=== PATIENT | male | born 1955 | race Caucasian/White ===

== ENCOUNTER → 2017-06-06 | Outpatient (CLI) | payer OTHER ==
[~2017-06-06] VITALS: Ht 182.9 cm; Wt 93.0 kg
== END | disposition home or self-care (01) ==
LOC: Rad HDHVI 08:27
PROVIDERS: ATTEND Internal Medicine Cardiovascular Disease
DX: I10 Essential (primary) hypertension (principal); I25.10 Atherosclerotic heart disease of native coronary artery without angina pectoris
CPT/HCPCS: 78452; 93017; 96374; A9500

== ENCOUNTER 2017-07-06 06:00 | Inpatient (IN) | payer OTHER ==
[~2017-07-06] VITALS: Ht 182.9 cm; Wt 88.5 kg
[2017-07-06] MEDS ORDERED: SUCCINYLCHOLINE CHLORIDE 20 MG/ML 10ML VIAL IV ONE (06:48)
[2017-07-06] MEDS ORDERED: POVIDONE IODINE 10 % TOPICAL OINT 30GM TOP ONE (06:52)
[2017-07-06] MEDS ORDERED: MEPERIDINE HCL (50 MG/ML) 1 ML VIAL ONE (07:02)
[2017-07-06] MEDS ORDERED: ROCURONIUM 10MG/ML 10ML VIAL IV ONE (07:02)
[2017-07-06] MEDS ORDERED: fentaNYL CITRATE 100 MCG/2 ML VL ONE (07:02)
[2017-07-06] MEDS ORDERED: MIDAZOLAM HCL 1MG/1ML-2 ML VIAL ONE (07:02)
[2017-07-06] MEDS ORDERED: ONDANSETRON HCL 4 MG/2 ML VIAL ONE (07:02)
[2017-07-06] MEDS ORDERED: PROPOFOL 10 MG/ML 20 ML IV ONE (07:03)
[2017-07-06] MEDS ORDERED: ceFAZolin 1GM/100ML 50 ML IV ONE (07:14)
[2017-07-06] MEDS ORDERED: KETOROLAC TROMETH 60MG/2ML VIAL IM ONE (07:38)
[2017-07-06] MEDS ORDERED: GLYCOPYRROLATE 0.2 MG/ML 1ML VIAL ONE (07:38)
[2017-07-06] MEDS ORDERED: NEOSTIGMINE 1 MG/ML INJ (10mg/10ML VIAL) ONE (07:38)
[2017-07-06] MEDS ORDERED: METOCLOPRAMIDE HCL 5MG/ml INJ 2ml VIAL IV ONE (08:00)
[2017-07-06] MEDS ORDERED: MORPHINE SULFATE 4 MG/ML SYR/VIAL IV PRN ×3 (08:00→09:15)
[2017-07-06] MEDS ORDERED: NITROGLYCERIN 0.4 MG SL TAB SL PRN (09:15)
[2017-07-06] MEDS ORDERED: ONDANSETRON HCL 4 MG/2 ML VIAL IV PRN (09:15)
[2017-07-06] MEDS: D5W/SOD CHL 0.45%/KCL 20MEQ 1,000 ML IV SCH ×2 (10:00→20:58)
[2017-07-06] MEDS: MORPHINE SULFATE 4 MG/ML SYR/VIAL IV PRN ×5 (11:25→20:58)
[2017-07-06] MEDS: ISOSORBIDE MONONITRATE 60 MG TAB PO SCH (13:21)
[2017-07-06] MEDS: amLODIPine BESYLATE 5 MG TAB PO SCH (13:22)
[2017-07-06] MEDS: FAMOTIDINE 20 MG TAB PO SCH (13:23)
[2017-07-06] MEDS: FLUoxetine HCL 20 MG CAP PO SCH (13:23)
[2017-07-06] MEDS: ceFAZolin 1GM/100ML 50 ML IV SCH ×2 (13:35→21:05)
[2017-07-06] MEDS ORDERED: TAMS0.4C36 PO (17:15)
[2017-07-06] MEDS ORDERED: NITR0.4S29 SL (17:15)
[2017-07-06] MEDS ORDERED: ACET-1156 PO (17:15)
[2017-07-06] MEDS ORDERED: AMIT75TA2 PO (17:15)
[2017-07-06] MEDS ORDERED: LEVO25TA6 PO (17:15)
[2017-07-06] MEDS ORDERED: FLUO-125 PO (17:15)
[2017-07-06] MEDS ORDERED: AMLO5TAB2 PO (17:15)
[2017-07-06] MEDS ORDERED: ISO20T PO (17:15)
[2017-07-06] MEDS ORDERED: ASPI81TA27 PO (17:15)
[2017-07-06] MEDS ORDERED: ATOR20TA50 PO (17:15)
[2017-07-06] MEDS ORDERED: RANI-229 PO (17:15)
[2017-07-06 17:23] VITALS: BP 127/61
[2017-07-06] MEDS ORDERED: TAMSULOSIN HYDROCHLORIDE 0.4 MG CAP PO SCH (18:00)
[2017-07-06 22:00] VITALS: BP 120/74
[2017-07-06] MEDS ORDERED: AMITRIPTYLINE HCL 25 MG TAB PO SCH (22:00)
[2017-07-07 04:50] VITALS: BP 123/72
[2017-07-07] MEDS: MORPHINE SULFATE 4 MG/ML SYR/VIAL IV PRN ×2 (05:53→12:43)
[2017-07-07] MEDS: ceFAZolin 1GM/100ML 50 ML IV SCH ×2 (05:53→13:59)
[2017-07-07] MEDS: D5W/SOD CHL 0.45%/KCL 20MEQ 1,000 ML IV SCH ×2 (05:53→14:30)
[2017-07-07] MEDS ORDERED: LEVOTHYROXINE SODIUM 25 MCG TAB PO SCH (07:00)
[2017-07-07 07:31] LABS: Albumin 3.2 g/dL (3.4-5.0); BUN/Creatinine Ratio 8.3; Bilirubin, Total 1.5 mg/dL (0.2-1.0); Calcium 8.1 mg/dL (8.5-10.1); Potassium 4.3 mmol/L (3.5-5.1); Total Protein 5.9 g/dL (6.4-8.2)
[2017-07-07 09:01] VITALS: BP 130/81
[2017-07-07] MEDS: FAMOTIDINE 20 MG TAB PO SCH (09:26)
[2017-07-07] MEDS: FLUoxetine HCL 20 MG CAP PO SCH (09:27)
[2017-07-07] MEDS: amLODIPine BESYLATE 5 MG TAB PO SCH (09:27)
[2017-07-07] MEDS: ISOSORBIDE MONONITRATE 60 MG TAB PO SCH (09:28)
[2017-07-07 13:00] VITALS: BP 126/68
[2017-07-07 14:19] VITALS: BP 130/81
== END 2017-07-07 16:30 | disposition home or self-care (01) | DRG 419 ==
LOC: SUR 06:00 → EAST 06:01
PROVIDERS: ADMIT Surgery; ATTEND Internal Medicine
PROC: 0FT44ZZ Resection of Gallbladder, Percutaneous Endoscopic Approach (ICD-10-PCS; principal; 2017-07-07)
DX: K80.10 Calculus of gallbladder with chronic cholecystitis without obstruction (principal); E03.9 Hypothyroidism, unspecified; E78.00 Pure hypercholesterolemia, unspecified; G89.29 Other chronic pain; I25.10 Atherosclerotic heart disease of native coronary artery without angina pectoris; I10 Essential (primary) hypertension; N40.0 Benign prostatic hyperplasia without lower urinary tract symptoms; F32.9 Major depressive disorder, single episode, unspecified; Z87.81 Personal history of (healed) traumatic fracture; Z90.49 Acquired absence of other specified parts of digestive tract; Z87.891 Personal history of nicotine dependence; Z88.5 Allergy status to narcotic agent; Z82.49 Family history of ischemic heart disease and other diseases of the circulatory system; Z95.5 Presence of coronary angioplasty implant and graft
CPT/HCPCS: 36415; 80053; 82247; 86850; 86900; 86901; 87081; J0330; J0690; J1885; J2250; J2405; J2704

== ENCOUNTER 2018-10-06 10:09 | Inpatient (IN) | payer OTHER ==
[~2018-10-06] VITALS: Ht 182.9 cm; Wt 93.1 kg
[~2018-10-06 10:09] MED LIST: ACET-1156 PO; AMIT75TA2 PO; AMLO5TAB15 PO; ASPI-404 PO; ATOR20TA50 PO; FLUO-125 PO; ISO20T PO; LEVO25TA6 PO; NITR0.4S29 SL; RANI-229 PO; TAMS0.4C36 PO
[2018-10-06] MEDS ORDERED: ASPirin 81 mg TAB PO ONE (10:45)
[2018-10-06] MEDS ORDERED: NITROGLYCERIN 0.4 MG SL TAB SL ONE (10:45)
[2018-10-06] MEDS ORDERED: ONDANSETRON HCL 4 MG/2 ML VIAL IV ONE (11:00)
[2018-10-06] MEDS ORDERED: MORPHINE SULFATE 4 MG/ML SYR/VIAL IV ONE (11:00)
[2018-10-06 11:22] LABS: Basophils # (auto) 0 uL; Basophils % (auto) 0.3 % (0.0-2.0); Eosinophils # (auto) 0.1 uL; Hematocrit 40.7 % (41.0-53.0); Hemoglobin 13.8 g/dL (13.5-17.5); Lymphocytes # (auto) 0.7 uL; Lymphocytes % (auto) 9.5 % (10.0-50.0); Mean Corpuscular Hemoglobin 30.4 pg (28.0-32.0); Mean Corpuscular Hgb Conc. 33.9 g/dL (32.0-36.0); Mean Corpuscular Volume 89.6 fL (80.0-100.0); Monocytes # (auto) 0.5 uL; Monocytes % (auto) 6.4 % (0.0-12.0); Neutrophils % (auto) 82.8 % (37.0-80.0); Platelet Count (auto) 155 10^3/uL (140-450); Red Blood Cells 4.54 10^6/uL (4.5-5.90); Red Cell Distribution Width 14.3 % (11.8-14.3); White Blood Cell 7.2 10^3/uL (4.4-10.8)
[2018-10-06 11:31] LABS: Alanine Aminotransferase 18 U/L (16-61); Albumin 3.5 g/dL (3.4-5.0); Anion Gap 3 (5-15); Blood Urea Nitrogen 18 mg/dL (7-18); Calcium 8.7 mg/dL (8.5-10.1); Carbon Dioxide 28 mmol/L (21-32); Chloride 109 mmol/L (98-107); Glucose 116 mg/dL (74-106); Magnesium 2.5 mg/dL (1.6-2.6); Potassium 4.4 mmol/L (3.5-5.1); Sodium 140 mmol/L (136-145)
[2018-10-06 11:36] LABS: Alkaline Phosphatase 94 U/L (45-117); Aspartate Aminotransferase 12 U/L (15-37); BUN/Creatinine Ratio 16.4; Bilirubin, Total 1.6 mg/dL (0.2-1.0); GFR African American 86 mL/min; GFR Non-African American 71 mL/min; Total Protein 6.9 g/dL (6.4-8.2)
[2018-10-06] MEDS ORDERED: MORPHINE SULF INJ 2 MG/ML SYRINGE 1ML IV PRN (11:45)
[2018-10-06] MEDS ORDERED: NITROGLYCERIN 0.4 MG SL TAB SL PRN (11:45)
[2018-10-06 12:52] VITALS: BP 110/63
[2018-10-06] MEDS ORDERED: ONDANSETRON HCL 4 MG/2 ML VIAL IV PRN (16:00)
[2018-10-06 16:29] VITALS: BP 107/65
[2018-10-06 20:00] VITALS: BP 120/70
[2018-10-06 22:00] VITALS: BP 120/70
[2018-10-07 05:00] VITALS: BP 136/71
[2018-10-07 08:00] VITALS: BP 122/76
[2018-10-07 09:00] VITALS: BP 122/76
[2018-10-07] MEDS: ENOXAPARIN SOD 40 MG/0.4 ML SYRINGE SC SCH (09:33)
[2018-10-07] MEDS: LISINOPRIL 5 MG TAB PO SCH (09:33)
[2018-10-07] MEDS: METOPROLOL TARTRATE 25 MG TAB PO SCH (09:33)
[2018-10-07 13:00] VITALS: BP 139/74
[2018-10-07 17:00] VITALS: BP 122/71
[2018-10-07 22:00] VITALS: BP 134/92
[2018-10-08 05:00] VITALS: BP 157/78
[2018-10-08 07:57] VITALS: BP 120/74
[2018-10-08] MEDS: ENOXAPARIN SOD 40 MG/0.4 ML SYRINGE SC SCH (08:50)
[2018-10-08] MEDS: ASPirin 81 mg TAB PO SCH (08:50)
[2018-10-08] MEDS: LISINOPRIL 5 MG TAB PO SCH (08:51)
[2018-10-08] MEDS: METOPROLOL TARTRATE 25 MG TAB PO SCH (08:51)
[2018-10-08 09:00] VITALS: BP 120/72
[2018-10-08 13:00] VITALS: BP 128/69
[2018-10-08 17:55] VITALS: BP 130/59
[2018-10-08 22:00] VITALS: BP 118/72
[2018-10-09 05:00] VITALS: BP 150/74
[2018-10-09] MEDS ORDERED: ADENOSINE 77 MG in GIVE UN-DILUTED 0 ML IV STA (08:13)
[2018-10-09 08:57] VITALS: BP 138/74
[2018-10-09] MEDS: ASPirin 81 mg TAB PO SCH (10:00)
[2018-10-09] MEDS: ENOXAPARIN SOD 40 MG/0.4 ML SYRINGE SC SCH (10:00)
[2018-10-09] MEDS: METOPROLOL TARTRATE 25 MG TAB PO SCH (10:00)
[2018-10-09] MEDS: LISINOPRIL 5 MG TAB PO SCH (10:00)
[2018-10-09 10:09] VITALS: BP 144/85
[2018-10-09 13:00] VITALS: BP 138/76
[2018-10-09 17:00] VITALS: BP 137/84
[2018-10-09 22:17] VITALS: BP 112/76
[2018-10-09] MEDS: HYDROcodone-ACET 5/325MG TAB PO PRN (23:53)
[2018-10-10 05:13] VITALS: BP 131/86
[2018-10-10 05:14] VITALS: BP 120/71
[2018-10-10 09:00] VITALS: BP 128/77
[2018-10-10] MEDS: ASPirin 81 mg TAB PO SCH (10:29)
[2018-10-10] MEDS: METOPROLOL TARTRATE 25 MG TAB PO SCH (10:31)
[2018-10-10] MEDS: LISINOPRIL 5 MG TAB PO SCH (10:31)
[2018-10-10] MEDS: ENOXAPARIN SOD 40 MG/0.4 ML SYRINGE SC SCH (10:31)
[2018-10-10 13:00] VITALS: BP 134/62
[2018-10-10] MEDS: HYDROcodone-ACET 5/325MG TAB PO PRN ×2 (14:51→20:45)
[2018-10-10 17:00] VITALS: BP 131/72
[2018-10-10 23:54] VITALS: BP 124/70
[2018-10-11 05:11] VITALS: BP 136/77
[2018-10-11] MEDS: ENOXAPARIN SOD 40 MG/0.4 ML SYRINGE SC SCH (07:20)
[2018-10-11 08:00] VITALS: BP 134/79
[2018-10-11 08:56] VITALS: BP 134/79
[2018-10-11 09:01] LABS: Basophils # (auto) 0 uL; Basophils % (auto) 0.8 % (0.0-2.0); Eosinophils # (auto) 0.4 uL; Eosinophils % (auto) 6.6 % (0.0-7.0); Hematocrit 43.6 % (41.0-53.0); Hemoglobin 15.1 g/dL (13.5-17.5); Lymphocytes # (auto) 1.2 uL; Lymphocytes % (auto) 20.2 % (10.0-50.0); Mean Corpuscular Hgb Conc. 34.5 g/dL (32.0-36.0); Mean Corpuscular Volume 89.8 fL (80.0-100.0); Monocytes # (auto) 0.5 uL; Monocytes % (auto) 8.5 % (0.0-12.0); Neutrophils # (auto) 3.9 uL; Neutrophils % (auto) 63.9 % (37.0-80.0); Nucleated Red Blood Cells % 0.1 %; Platelet Count (auto) 175 10^3/uL (140-450); Red Blood Cells 4.86 10^6/uL (4.5-5.90); Red Cell Distribution Width 14.5 % (11.8-14.3)
[2018-10-11] MEDS: METOPROLOL TARTRATE 25 MG TAB PO SCH (09:04)
[2018-10-11] MEDS: ASPirin 81 mg TAB PO SCH (09:04)
[2018-10-11] MEDS: LISINOPRIL 5 MG TAB PO SCH (09:05)
[2018-10-11 09:13] LABS: BUN/Creatinine Ratio 17.3; Calcium 8.6 mg/dL (8.5-10.1)
[2018-10-11 09:29] LABS: INR 0.95 (0.9-1.15); Partial Thromboplastin Time 27.1 sec (23.64-32.05)
[2018-10-11 11:50] VITALS: BP 133/80
[2018-10-11] MEDS ORDERED: SODIUM CHL 0.9% 0 ML ONE (11:54)
[2018-10-11] MEDS ORDERED: ANGIOMAX 250 MG VIAL IV ONE (11:54)
[2018-10-11] MEDS ORDERED: fentaNYL CITRATE 100 MCG/2 ML VL ONE (11:54)
[2018-10-11] MEDS ORDERED: MIDAZOLAM HCL 1MG/1ML-2 ML VIAL ONE (11:54)
[2018-10-11] MEDS ORDERED: IOHEXOL 350 MG/ML 100ML IJ ONE ×2 (11:58→12:38)
[2018-10-11] MEDS ORDERED: LIDOCAINE 2%HCL (LOCAL ANESTH.) INJ 20ML MDV ONE (11:58)
[2018-10-11] MEDS ORDERED: ADENOSINE 6 MG/2 ML INJ IV ONE (12:12)
[2018-10-11] MEDS ORDERED: NICARDIPINE 25 MG/10 ML VIAL IV ONE (12:13)
[2018-10-11 16:47] VITALS: BP 113/69
[2018-10-11 22:24] VITALS: BP 132/71
[2018-10-12 05:27] VITALS: BP 129/63
[2018-10-12 09:26] VITALS: BP 140/75
[2018-10-12] MEDS: LISINOPRIL 5 MG TAB PO SCH (10:11)
[2018-10-12] MEDS: ASPirin 81 mg TAB PO SCH (10:11)
[2018-10-12] MEDS: ENOXAPARIN SOD 40 MG/0.4 ML SYRINGE SC SCH (10:12)
[2018-10-12] MEDS: METOPROLOL TARTRATE 25 MG TAB PO SCH (10:12)
[2018-10-12 13:00] VITALS: BP 120/70
[2018-10-12 17:00] VITALS: BP 143/70
[2018-10-12 20:04] VITALS: BP 143/70
[2018-10-12 22:00] VITALS: BP 128/80
== END 2018-10-12 21:15 | DRG 287 ==
LOC: EDBD 10:09 → ER 10:09 → EEVIPCON 10:09 → TELE-E-ADS 10:10
PROVIDERS: ADMIT Internal Medicine; ATTEND Internal Medicine
PROC: 4A023N7 Measurement of Cardiac Sampling and Pressure, Left Heart, Percutaneous Approach (ICD-10-PCS; principal; 2018-10-11)
PROC: B2151ZZ Fluoroscopy of Left Heart using Low Osmolar Contrast (ICD-10-PCS; 2018-10-11)
PROC: B2111ZZ Fluoroscopy of Multiple Coronary Arteries using Low Osmolar Contrast (ICD-10-PCS; 2018-10-11)
PROC: B41F1ZZ Fluoroscopy of Right Lower Extremity Arteries using Low Osmolar Contrast (ICD-10-PCS; 2018-10-11)
PROC: 4A033BC Measurement of Arterial Pressure, Coronary, Percutaneous Approach (ICD-10-PCS; 2018-10-11)
DX: I25.110 Atherosclerotic heart disease of native coronary artery with unstable angina pectoris (principal); E03.9 Hypothyroidism, unspecified; E78.00 Pure hypercholesterolemia, unspecified; K81.1 Chronic cholecystitis; F32.9 Major depressive disorder, single episode, unspecified; I10 Essential (primary) hypertension; N40.0 Benign prostatic hyperplasia without lower urinary tract symptoms; Z82.49 Family history of ischemic heart disease and other diseases of the circulatory system; Z95.5 Presence of coronary angioplasty implant and graft; Z88.5 Allergy status to narcotic agent; Z79.899 Other long term (current) drug therapy; Z79.82 Long term (current) use of aspirin; Z90.49 Acquired absence of other specified parts of digestive tract
CPT/HCPCS: 36415; 71045; 75710; 78452; 80048; 80053; 83735; 84484; 85025; 85610; 85730; 87081; 93005; 93017; 93458; 93571; 94761; 96374; 96375; 99152; G0378; J0153; J2250; J2405

== ENCOUNTER → 2020-04-17 | Day surgery (SDC) | payer OTHER ==
[~2020-04-17] VITALS: Ht 182.9 cm; Wt 93.0 kg
[~2020-04-17] MED LIST changes: +AMLO-489 PO; -AMLO5TAB15 PO; -ASPI-404 PO; +ASPI-543 PO; +CIPROFLOXACIN 400MG/200ML 200 ML IV ONE; +DexAMETHasone SOD PHOS 10MG/1ML VIAL INJ ONE; +LABETALOL HCL 5 MG/ML 4ML SYRINGE IV PRN; +MIDAZOLAM HCL 1MG/1ML-2 ML VIAL IV PRN; +MIDAZOLAM HCL 1MG/1ML-2 ML VIAL ONE; +MORPHINE SULFATE 4 MG/ML SYR/VIAL IV PRN; +ONDANSETRON HCL 4 MG/2 ML VIAL IV PRN; +PROPOFOL 10 MG/ML 20 ML IV ONE; -RANI-229 PO; +RANI300T PO; +ePHEDrine SULFATE 50 MG/ML AMP IV PRN; +fentaNYL CITRATE 100 MCG/2 ML VL ONE
[2020-04-17 07:57] LABS: Basophils # (auto) 0 10 ^3/uL (0-0.2); Basophils % (auto) 0.8 % (0.0-2.0); Eosinophils # (auto) 0.1 10 ^3/uL (0-0.8); Eosinophils % (auto) 2.6 % (0.0-7.0); Hematocrit 40.8 % (41.0-53.0); Lymphocytes # (auto) 1.2 10 ^3/uL (0.4-5.4); Lymphocytes % (auto) 21.1 % (10.0-50.0); Mean Corpuscular Hgb Conc. 34.4 g/dL (32.0-36.0); Monocytes # (auto) 0.4 10 ^3/uL (0-1.3); Monocytes % (auto) 7.9 % (0.0-12.0); Neutrophils # (auto) 3.8 10 ^3/uL (1.6-8.6); Neutrophils % (auto) 67.6 % (37.0-80.0); Platelet Count (auto) 188 10^3/uL (140-450); Red Blood Cells 4.53 10^6/uL (4.5-5.90); Red Cell Distribution Width 14.7 % (11.8-14.3); White Blood Cell 5.6 10^3/uL (4.4-10.8)
[2020-04-17 08:03] LABS: BUN/Creatinine Ratio 15.6; Calcium 8.5 mg/dL (8.5-10.1); Potassium 4.2 mmol/L (3.5-5.1)
[2020-04-17 08:19] LABS: INR 0.96 (0.9-1.15); Partial Thromboplastin Time 26.5 sec (23.0-31.2)
[2020-04-17 10:00] VITALS: BP 138/68
== END | disposition home or self-care (01) ==
LOC: SUR 07:07
PROVIDERS: ATTEND Urology
DX: R97.20 Elevated prostate specific antigen [PSA] (principal); I10 Essential (primary) hypertension; M54.5 Low back pain; E66.9 Obesity, unspecified; I25.118 Atherosclerotic heart disease of native coronary artery with other forms of angina pectoris; E03.9 Hypothyroidism, unspecified; E78.5 Hyperlipidemia, unspecified; G89.29 Other chronic pain; F32.9 Major depressive disorder, single episode, unspecified; Z98.890 Other specified postprocedural states; Z79.899 Other long term (current) drug therapy; Z88.5 Allergy status to narcotic agent; Z68.27 Body mass index [BMI] 27.0-27.9, adult; Z98.61 Coronary angioplasty status
CPT/HCPCS: 36415; 55700; 80048; 85025; 85610; 85730; J0744; J1100; J2250; J2704; J3010; 76872

== ENCOUNTER → 2021-03-04 | Outpatient (CLI) | payer OTHER ==
[~2021-03-04] MED LIST changes: -AMIT75TA2 PO; +AMIT75TA4 PO; -CIPROFLOXACIN 400MG/200ML 200 ML IV ONE; -DexAMETHasone SOD PHOS 10MG/1ML VIAL INJ ONE; +IOHEXOL 300 MG/ML 100ML BOTTLE IJ ONE; -LABETALOL HCL 5 MG/ML 4ML SYRINGE IV PRN; -MIDAZOLAM HCL 1MG/1ML-2 ML VIAL IV PRN; -MIDAZOLAM HCL 1MG/1ML-2 ML VIAL ONE; -MORPHINE SULFATE 4 MG/ML SYR/VIAL IV PRN; -ONDANSETRON HCL 4 MG/2 ML VIAL IV PRN; -PROPOFOL 10 MG/ML 20 ML IV ONE; -ePHEDrine SULFATE 50 MG/ML AMP IV PRN; -fentaNYL CITRATE 100 MCG/2 ML VL ONE
[2021-03-04 09:37] LABS: Calcium 9.1 mg/dL (8.5-10.1)
== END | disposition home or self-care (01) ==
LOC: CT 08:36
DX: C61 Malignant neoplasm of prostate (principal); K57.30 Diverticulosis of large intestine without perforation or abscess without bleeding; R59.0 Localized enlarged lymph nodes; I70.0 Atherosclerosis of aorta; Z90.49 Acquired absence of other specified parts of digestive tract; M47.816 Spondylosis without myelopathy or radiculopathy, lumbar region
CPT/HCPCS: 36415; 74177; 80048; Q9967

== ENCOUNTER 2022-02-16 12:34 | Inpatient (IN) | payer OTHER ==
[~2022-02-16] VITALS: Ht 182.9 cm; Wt 95.9 kg
[~2022-02-16 12:34] MED LIST changes: -IOHEXOL 300 MG/ML 100ML BOTTLE IJ ONE
[2022-02-16] MEDS ORDERED: NITROGLYCERIN 0.4 MG SL TAB SL ONE (13:00)
[2022-02-16 13:22] LABS: Basophils # (auto) 0 10 ^3/uL (0-0.2); Basophils % (auto) 0.7 % (0.0-2.0); Eosinophils # (auto) 0.1 10 ^3/uL (0-0.8); Eosinophils % (auto) 2.2 % (0.0-7.0); Hematocrit 39.9 % (41.0-53.0); Hemoglobin 13.5 g/dL (13.5-17.5); Lymphocytes # (auto) 0.7 10 ^3/uL (0.4-5.4); Lymphocytes % (auto) 14.1 % (10.0-50.0); Mean Corpuscular Hemoglobin 30.6 pg (28.0-32.0); Mean Corpuscular Hgb Conc. 33.9 g/dL (32.0-36.0); Mean Corpuscular Volume 90.4 fL (80.0-100.0); Monocytes # (auto) 0.4 10 ^3/uL (0-1.3); Monocytes % (auto) 7.9 % (0.0-12.0); Neutrophils # (auto) 3.8 10 ^3/uL (1.6-8.6); Neutrophils % (auto) 75.1 % (37.0-80.0); Red Blood Cells 4.42 10^6/uL (4.5-5.90); Red Cell Distribution Width 14.9 % (11.8-14.3)
[2022-02-16 13:35] LABS: Albumin 3.7 g/dL (3.4-5.0); Calcium 9.3 mg/dL (8.5-10.1); Potassium 3.5 mmol/L (3.5-5.1)
[2022-02-16 13:37] LABS: BUN/Creatinine Ratio 19.8
[2022-02-16 13:39] LABS: Bilirubin, Total 1.3 mg/dL (0.2-1.0); Total Protein 6.7 g/dL (6.4-8.2)
[2022-02-16] MEDS ORDERED: NITROGLYCERIN 0.4 MG SL TAB SL PRN ×2 (17:00→19:15)
[2022-02-16] MEDS ORDERED: MORPHINE SULFATE INJ 2 MG/ml SYRG IV PRN ×4 (17:00→19:15)
[2022-02-16] MEDS ORDERED: ONDANSETRON HCL 4 MG/2 ML VIAL IV PRN ×2 (17:00→19:15)
[2022-02-16] MEDS ORDERED: PANTOPRAZOLE 40 MG TAB PO SCH (17:08)
[2022-02-16] MEDS ORDERED: ASPirin-EC 81 mg tab PO SCH (17:08)
[2022-02-16 19:46] LABS: Urine Blood Negative /uL (Negative); Urine Specific Gravity 1.013 (1.001-1.035)
[2022-02-17] MEDS ORDERED: ADENOSINE 76 MG in GIVE UN-DILUTED 0 ML IV ONE (07:30)
[2022-02-17] MEDS ORDERED: ENOXAPARIN SOD 40 MG/0.4 ML SYRINGE SC SCH (10:00)
[2022-02-17] MEDS ORDERED: METOPROLOL TARTRATE 25 MG TAB PO SCH (10:00)
[2022-02-17] MEDS: PANTOPRAZOLE 40 MG TAB PO SCH (10:45)
[2022-02-17] MEDS: ENOXAPARIN SOD 40 MG/0.4 ML SYRINGE SC SCH (10:46)
[2022-02-17] MEDS: ASPirin-EC 81 mg tab PO SCH (10:46)
[2022-02-17] MEDS: METOPROLOL TARTRATE 25 MG TAB PO SCH (10:47)
[2022-02-17 17:00] VITALS: BP 138/72
[2022-02-17 22:00] VITALS: BP 131/65
[2022-02-18 05:00] VITALS: BP_SYST 110; BP_SYST 141; BP_DIAS 50; BP_DIAS 53
[2022-02-18 08:52] VITALS: BP 129/65
[2022-02-18] MEDS: ASPirin-EC 81 mg tab PO SCH (09:15)
[2022-02-18] MEDS: METOPROLOL TARTRATE 25 MG TAB PO SCH (09:15)
[2022-02-18] MEDS: PANTOPRAZOLE 40 MG TAB PO SCH (09:15)
[2022-02-18] MEDS: ENOXAPARIN SOD 40 MG/0.4 ML SYRINGE SC SCH (09:16)
== END 2022-02-18 13:05 | DRG 313 ==
LOC: ER 12:34 → EEVIPCON 12:34 → EDBD 12:34 → TELE 17:04 → UNDOADMIN 17:04 → TELE 19:19 → TELE-WESTW 02-17 14:36
PROVIDERS: ADMIT Internal Medicine; ATTEND Internal Medicine
DX: R07.9 Chest pain, unspecified (principal); I25.10 Atherosclerotic heart disease of native coronary artery without angina pectoris; I10 Essential (primary) hypertension; R09.89 Other specified symptoms and signs involving the circulatory and respiratory systems; E78.5 Hyperlipidemia, unspecified; N40.0 Benign prostatic hyperplasia without lower urinary tract symptoms; F32.A Depression, unspecified; K81.1 Chronic cholecystitis; R77.8 Other specified abnormalities of plasma proteins; Z20.822 Contact with and (suspected) exposure to COVID-19; Z80.1 Family history of malignant neoplasm of trachea, bronchus and lung; Z87.891 Personal history of nicotine dependence; Z90.49 Acquired absence of other specified parts of digestive tract; Z79.82 Long term (current) use of aspirin; Z79.899 Other long term (current) drug therapy; Z82.49 Family history of ischemic heart disease and other diseases of the circulatory system; Z88.5 Allergy status to narcotic agent
CPT/HCPCS: 36415; 71045; 78452; 80053; 81003; 83880; 84484; 85025; 87426; 93005; 93017; G0378; J0153